=== PATIENT | male | born 1980 | race Caucasian/White ===

== ENCOUNTER 2017-09-19 11:30 | Emergency (ER) | payer OTHER ==
[2017-09-19] MEDS ORDERED: Diphtheria,Pertussis(Acell),Tetanus Vaccine 0.5 ML SDV IM ONE (12:10)
[2017-09-19] MEDS ORDERED: Bacitracin Oint 1 GM U/D Packet TOP ONE (12:11)
--- NOTE | 2017-09-19 12:29 | EDM.PDOC ---
ED HPI GENERAL MEDICAL PROBLEM - General Chief Complaint: Laceration Stated Complaint: CUT LT THUMB Time Seen by Provider: 09/19/17 12:05 Source of Information: Reports: Patient History Limitations: Reports: No Limitations - History of Present Illness INITIAL COMMENTS - FREE TEXT/NARRATIVE: 36 yo male cut his L hand on sheet metal before arrival. Unknown last tetanus date. 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), Other (see below) (none) - Related Data Allergies Allergy/AdvReac Type Severity Reaction Status Date / Time No Known Allergies Allergy Verified 09/19/17 11:46 Home Meds: Home Meds NK [No Known Home Meds] 09/19/17 [History] Past Medical History - Past Health History Medical/Surgical History: Denies Medical/Surgical History - Infectious Disease History Infectious Disease History: Reports: Chicken Pox Social & Family History - Tobacco Use Smoking Status *Q: Never Smoker - Recreational Drug Use Recreational Drug Use: No ED ROS GENERAL - Review of Systems Review Of Systems: See Below Constitutional: Reports: No Symptoms Musculoskeletal: Reports: No Symptoms Skin: Reports: Wound (L hand) Neurological: Reports: No Symptoms ED EXAM, SKIN/RASH Exam: See Below Exam Limited By: No Limitations General Appearance: Alert, WD/WN, No Apparent Distress Neurological: Alert, Oriented, No Motor/Sensory Deficits Psychiatric: Normal Affect, Normal Mood Skin: Warm, Dry, Normal Color, No Rash, Wound/Incision (2.5 cm linear laceration over MC joint of the L thumb dorsally. No sensory or motor deficits. Wound clean. ) ED SKIN PROCEDURES - Laceration/Wound Repair Left Proximal Finger Lac/Wound length In cm: 2.5 Appearance: Subcutaneous, Clean Distal NVT: Neuro & Vascular Intact, No Tendon Injury Anesthetic Type: Local Local Anesthesia - Lidocaine (Xylocaine): 1% Plain Local Anesthetic Volume: 5cc Skin Prep: Saline Saline Irrigation (cc's): 30 Exploration/Debridement/Repair: Wound Explored, Explored to Base, No Foreign Material Found Closed with: Sutures Suture Size: other (5-0) Suture Type: Nylon, Interrupted, Simple Drain Placement: No Sterile Dressing Applied: Nurse Tetanus Status Addressed: Yes Complications: No Course - Vital Signs Last Recorded V/S: Last Vital Signs Temp 36.1 C 09/19/17 11:49 Pulse 60 09/19/17 11:49 Resp 16 09/19/17 11:49 BP 137/79 09/19/17 11:49 Pulse Ox 97 09/19/17 11:49 - Orders/Labs/Meds Orders: Active Orders 24 hr Category Date Time Status Vaccines to be Administered [RC] PER UNIT ROUTINE Care 09/19/17 12:10 Active Meds: Medications Discontinued Medications Generic Name Dose Route Start Last Admin Trade Name Freq PRN Reason Stop Dose Admin Bacitracin 1 dose 09/19/17 12:11 Bacitracin Oint 1 Gm TOP 09/19/17 12:12 ONETIME ONE Diphtheria/Tetanus/Acell Pertussis 0.5 ml 09/19/17 12:10 Adacel IM 09/19/17 12:11 .ONCE ONE Lidocaine HCl 5 ml 09/19/17 12:10 Xylocaine-Mpf 1% INJECT 09/19/17 12:11 ONETIME ONE Departure - Departure Time of Disposition: 12:36 Disposition: Home, Self-Care 01 Condition: Good Clinical Impression: Laceration of hand Qualifiers: Encounter type: initial encounter Foreign body presence: without foreign body Laterality: left Qualified Code(s): S61.412A - Laceration without foreign body of left hand, initial encounter - Discharge Information Referrals: PCP,None [Primary Care Provider] - Forms: ED Department Discharge Additional Instructions: Clean wound twice daily with soap and water. Keep wound clean x 3 days. Acetaminophen as needed for pain relief. Stitches out in 10 days at a site of your choosing. Recheck sooner for signs of infection. - My Orders Last 24 Hours: My Active Orders 09/19/17 12:10 Vaccines to be Administered [RC] PER UNIT ROUTINE - Assessment/Plan Last 24 Hours: My Active Orders 09/19/17 12:10 Vaccines to be Administered [RC] PER UNIT ROUTINE
== END 2017-09-19 12:46 | disposition home or self-care (01) ==
LOC: JP.ED 11:30
DX: S61.412A Laceration without foreign body of left hand, initial encounter (principal); Z23 Encounter for immunization; W26.8XXA Contact with other sharp object(s), not elsewhere classified, initial encounter
CPT/HCPCS: 12001; 90471; 90715; 99283-25